=== PATIENT | female | born 1990 | race Two or more races ===

== ENCOUNTER 2018-02-04 14:28 | Emergency (ER) | payer MEDICAID ==
[~2018-02-04] VITALS: Ht 157.5 cm; Wt 65.0 kg
[2018-02-04] MEDS ORDERED: SODIUM CHLORIDE 0.9% 1,000 ML IV ONE (22:07)
[2018-02-04 23:03] LABS: BASOPHILS % 0.8 % (0.0-2.0); EOSINOPHILS % 1.5 % (0.0-5.0); HEMATOCRIT. 38.3 % (36.0-48.0); LYMPHOCYTES % 43.8 % (20.0-50.0); MEAN CORPUSCULAR VOLUME 93.9 fL (81.0-99.0); MEAN PLATELET VOLUME 9.2 fl (7.4-10.4); NEUTROPHILS % 46.9 % (40.0-76.0); PLATELET 268 x1000/uL (130-400); RED BLOOD CELL COUNT 4.08 mill/uL (4.2-5.4)
[2018-02-04 23:07] LABS: CHLORIDE 103 mEq/L (98-107); INR 1.1; PROTHROMBIN TIME 10.8 sec (9.1-11.1)
[2018-02-04 23:18] LABS: B-HCG QUANTITATIVE 2 mIU/mL (<3)
[2018-02-05 01:00] VITALS: BP 121/83
[2018-02-05 01:10] LABS: CLARITY URINE CLOUDY (CLEAR); COLOR URINE DARK YELLOW (YELLOW); KETONES URINE TRACE (NEGATIVE); LEUKOCYTE ESTERASE URINE TRACE (NEGATIVE); NITRITE URINE NEGATIVE (NEGATIVE); OCCULT BLOOD URINE 3+ (NEGATIVE); PH URINE 5.5 (4.5-8.0); PROTEIN URINE TRACE (NEGATIVE); SPECIFIC GRAVITY URINE 1.036 (1.005-1.030); UROBILINOGEN URINE 0.2 E.U./dL (0.2-1.0)
[2018-02-05 01:38] LABS: *AMPHETAMINES SCREEN URINE NEGATIVE (NEGATIVE); *BARBITURATES SCREEN URINE NEGATIVE (NEGATIVE); *BENZODIAZEPINES SCREEN URINE NEGATIVE (NEGATIVE); *COCAINE SCREEN URINE NEGATIVE (NEGATIVE)
[2018-02-05 01:39] LABS: CANNABINOID URINE SCREEN NEGATIVE (NEGATIVE); METHADONE URINE SCREEN NEGATIVE (NEGATIVE); OPIATES URINE SCREEN NEGATIVE (NEGATIVE); PHENCYCLIDINE URINE SCREEN NEGATIVE (NEGATIVE)
== END 2018-02-05 01:15 | disposition home or self-care (01) ==
LOC: ER 14:28
DX: O03.9 Complete or unspecified spontaneous abortion without complication (principal); O03.5 Genital tract and pelvic infection following complete or unspecified spontaneous abortion; O99.211 Obesity complicating pregnancy, first trimester; Z3A.01 Less than 8 weeks gestation of pregnancy; O23.41 Unspecified infection of urinary tract in pregnancy, first trimester; R10.2 Pelvic and perineal pain
CPT/HCPCS: 36415; 76830; 76856; 80048; 80305; 81003; 81025; 84702; 85025; 85610; 86850; 86900; 86901; 99284; J7030

== ENCOUNTER 2018-09-13 00:17 | Emergency (ER) | payer MEDICAID ==
[~2018-09-13] VITALS: Ht 157.5 cm; Wt 65.3 kg
[2018-09-13 02:35] VITALS: BP 129/79
[2018-09-13 02:42] LABS: CLARITY URINE TURBID (CLEAR); COLOR URINE YELLOW (YELLOW); KETONES URINE TRACE (NEGATIVE); LEUKOCYTE ESTERASE URINE 3+ (NEGATIVE); NITRITE URINE POSITIVE (NEGATIVE); OCCULT BLOOD URINE 1+ (NEGATIVE); PH URINE 6.5 (4.5-8.0); PROTEIN URINE 1+ (NEGATIVE); SPECIFIC GRAVITY URINE 1.022 (1.005-1.030)
== END 2018-09-13 04:15 | disposition home or self-care (01) ==
LOC: ER 00:17
DX: N39.0 Urinary tract infection, site not specified (principal)
CPT/HCPCS: 81003; 81025; 87077; 87086; 87186; 99283; Z7610

== ENCOUNTER 2023-02-06 18:14 | Emergency (ER) | payer MEDICAID ==
[~2023-02-06] VITALS: Ht 154.9 cm; Wt 75.0 kg
[2023-02-06 18:41] VITALS: BP 121/95; PULSE 114; RESP 17; TEMP 98.1; O2SAT 100
[2023-02-06 21:25] LABS: HEMATOCRIT 40.6 % (36.0-48.0); HEMOGLOBIN 13.9 g/dL (12.0-16.0); MEAN CORPUSCULAR HEMOGLOBIN 30.4 pg (28.0-32.0); MEAN CORPUSCULAR HGB CONC 34.3 g/dL (31.0-37.0); MEAN CORPUSCULAR VOLUME 88.7 fL (81.0-99.0); PLATELET 275 x1000/uL (130-400); RED BLOOD CELL COUNT 4.58 mill/uL (4.2-5.4); WHITE BLOOD COUNT 6.6 x1000/uL (4.5-11.0)
[2023-02-06 21:39] LABS: ALANINE AMINOTRANSFERASE 8 IU/L (10-49); ASPARTATE AMINOTRANSFERASE 19 IU/L (<34); BILIRUBIN TOTAL 0.4 mg/dL (0.1-1.0); CALCIUM 9.8 mg/dL (8.7-10.4); CARBON DIOXIDE 27 mEq/L (21-32); CHLORIDE 100 mEq/L (98-107); CREATININE 0.7 mg/dL (0.6-1.0); GLUCOSE 97 mg/dL (70-105); POTASSIUM 3.5 mEq/L (3.5-5.1); PROTEIN TOTAL 8.8 g/dL (6.0-8.3); SODIUM 137 mEq/L (136-145); UREA NITROGEN BLOOD 11 mg/dL (9-23)
== END 2023-02-06 22:39 | disposition left against medical advice (07) ==
LOC: ER 18:14
DX: R09.A2 Foreign body sensation, throat (principal); Z53.21 Procedure and treatment not carried out due to patient leaving prior to being seen by health care provider
CPT/HCPCS: 36415; 70360; 80053; 85027; 99284

== ENCOUNTER 2024-02-08 08:32 | Emergency (ER) | payer MEDICAID ==
[~2024-02-08] VITALS: Ht 157.5 cm; Wt 68.0 kg
[2024-02-08 08:37] VITALS: O2SAT 99
[2024-02-08 08:38] VITALS: BP 117/93; PULSE 100; RESP 16; TEMP 98.7; O2SAT 93
[2024-02-08] MEDS ORDERED: DOXY150T8 MT (09:03)
[2024-02-08] MEDS: TETANUS, DIPHTHERIA, PERTUSSIS VAC/PF 0.5ML (>10YR OLD) IM ONE (09:12)
== END 2024-02-08 09:16 | disposition home or self-care (01) ==
LOC: ER 08:32
DX: S90.562A Insect bite (nonvenomous), left ankle, initial encounter (principal); Z98.890 Other specified postprocedural states; W57.XXXA Bitten or stung by nonvenomous insect and other nonvenomous arthropods, initial encounter; Y93.89 Activity, other specified; Y92.89 Other specified places as the place of occurrence of the external cause; Y99.8 Other external cause status
CPT/HCPCS: 90471; 90715; 99283